=== PATIENT | female | born 1945 | race Caucasian/White ===

== ENCOUNTER 2016-09-04 15:22 | Emergency (ER) | payer BC, OTHER ==
[2016-09-04 15:42] VITALS: BP 111/68
[2016-09-04] MEDS ORDERED: DOXYcycline CAP(*) 100 MG PO ONE (18:37)
--- NOTE | 2016-09-05 02:41 | ED ---
Skin Complaint - HPI Summary HPI Summary: Tick Rt hip that pt removed, but there is a 1 inch red raised area and pt unsure she removed head of tick. She is unsure how long the tick has been attached, most likely 24-48 hours but cannot be sure. The tick is not engorged , small and black appearing to be a deer tick. She denies previous Lyme disease , but has had tick bites before. - History of Current Complaint Chief Complaint: EDRashSkinAbscess Time Seen by Provider: 09/04/16 17:41 Stated Complaint: TICK BITE Hx Obtained From: Patient Onset/Duration: Started Hours Ago Skin Exposure Onset/Duration: Hours Ago Timing: Constant Onset Severity: Moderate Current Severity: Moderate Pain Intensity: 2 Pain Scale Used: 0-10 Numeric Skin Location: Discrete - right lateral thigh Character: Swelling, Pruritus, Pain, Redness, Raised, Painful Aggravating Symptom(s): Nothing Alleviating Symptom(s): Nothing Associated Signs & Symptoms: Negative Related History: Possible Reaction to: Insect - Allergy/Home Medications Allergies/Adverse Reactions: Allergies Allergy/AdvReac Type Severity Reaction Status Date / Time [place] Allergy Hives Verified 09/04/16 15:38 PMH/Surg Hx/FS Hx/Imm Hx Previously Healthy: Yes Infectious Disease History: No Infectious Disease History: Denies: Traveled Outside the [place] in Last 30 Days - Social History Occupation: Unemployed Lives: With Family Alcohol Use: None Hx Substance Use: No Substance Use Type: Reports: None Hx Tobacco Use: No Smoking Status (MU): Never Smoked Tobacco Review of Systems Constitutional: Negative Eyes: Negative Cardiovascular: Negative Respiratory: Negative Positive: no symptoms reported, see HPI Musculoskeletal: Negative Positive: Other - right lateral thigh posteriorly with 3X3 erythematous raised painful indurated area resembling reaction to tick bite. no erythema migrans. Neurological: Negative Psychological: Normal All Other Systems Reviewed And Are Negative: Yes Physical Exam Triage Information Reviewed: Yes Vital Signs On Initial Exam: Initial Vitals Temp Pulse Resp BP Pulse Ox 97.9 F 78 16 111/68 100 09/04/16 15:38 09/04/16 15:38 09/04/16 15:38 09/04/16 15:38 09/04/16 15:38 Vital Signs Reviewed: Yes Appearance: Positive: Well-Appearing, No Pain Distress, Well-Nourished Skin: Positive: Warm, Skin Color Reflects Adequate Perfusion, Other - right lateral thigh posteriorly with 3X3 erythematous raised painful indurated area resembling reaction to tick bite. no erythema migrans. Head/Face: Positive: Normal Head/Face Inspection Eyes: Positive: Normal, LETY, Conjunctiva Clear Neck: Positive: Supple, No Lymphadenopathy Respiratory/Lung Sounds: Positive: Clear to Auscultation, Breath Sounds Present Cardiovascular: Positive: Normal, RRR, Pulses are Symmetrical in both Upper and Lower Extremities Musculoskeletal: Positive: Normal, Strength/ROM Intact Neurological: Positive: Normal, Sensory/Motor Intact, Alert, Oriented to Person Place, Time Psychiatric: Positive: Normal AVPU Assessment: Alert Diagnostics - Vital Signs Vital Signs Temp Pulse Resp BP Pulse Ox 09/04/16 15:42 97.9 F 78 16 111/68 100 09/04/16 15:38 97.9 F 78 16 111/68 100 - Laboratory Lab Statement: Any lab studies that have been ordered have been reviewed, and results considered in the medical decision making process. Course/Dx - Course Course Of Treatment: Patient arrives with right lateral thigh posteriorly with 3X3 erythematous raised painful indurated area resembling reaction to tick bite. no erythema migrans. tick bite already removed and resembling deer tick. not engorged. d/t unknown timing of tick, will treat with prophylactic dose of doxycycline. patient requesting medication and is OK for discharge. - Differential Diagnoses - Skin Complaint Differential Diagnoses: Drug Rash, Poison [place], Scabies, Tick Born Illness - Diagnoses Provider Diagnoses: Tick bite Discharge - Discharge Plan Condition: Stable Disposition: HOME Patient Education Materials: Tick Bite (ED) Referrals: Bert QUINTANA,Salvador Webster [Primary Care Provider] - Additional Instructions: Approach to prophylaxis : According to the Infectious Diseases Society of [place] (IDSA) guidelines that recommend antibiotic prophylaxis only in patients who meet all of the following criteria: 1. Attached tick identified as an adult or nymphal I. scapularis tick (deer tick). 2. Tick is estimated to have been attached for 36 hours (by degree of engorgement or time of exposure). 3. Prophylaxis is begun within 72 hours of tick removal. Local rate of infection of ticks with B. burgdorferi is 20 percent if attached for over 48 hours (these rates of infection have been shown to occur in parts of [place], parts of the [facility], and parts of [place] and [place]). If you experience a tick and time of attachment is believed to be less than 36 hours, you may remove the tick with head intact and no need for prophylaxis. If over 36 hours, please come into UC. Prophylactic doxycycline is not recommended for ticks attached less than 36 hours. Images - Images Full Body (No Head): 1 - 3X3 raised erythematous painful indurated reaction to tick bite
== END 2016-09-04 18:39 | disposition home or self-care (01) ==
LOC: ED 15:22
DX: S70.261A Insect bite (nonvenomous), right hip, initial encounter (principal); L29.8 Other pruritus; W57.XXXA Bitten or stung by nonvenomous insect and other nonvenomous arthropods, initial encounter; Y93.9 Activity, unspecified; Y92.9 Unspecified place or not applicable; Y99.9 Unspecified external cause status; R60.0 Localized edema
CPT/HCPCS: 99281; A9270-GY